=== PATIENT | female | born 1950 | race Caucasian/White ===

== ENCOUNTER → 2017-05-10 | Outpatient (CLI) | payer OTHER, BC ==
[~2017-05-10] VITALS: Ht 160 cm; Wt 75.3 kg
[~2017-05-10] MED LIST: AMITRIPTYLINE H10 M3 PO; DYMISTA NASAL S23 GM NS; NEURONTIN 300300 M1 PO; PROTONIX40 M1 PO; XYZAL5 MG PO
--- NOTE | ~2017-05-10 | HPC ---
[facility] [place] [address] PAIN MANAGEMENT CONSULTATION Name: JOHN PALM Room #: REG MIKAELA PerezKrystinaAmalia#: [id number] Admission: 05/10/17 Attend Phys: Tre Toure DO Discharge: Date of : 54 Report #: [id number] THIS REPORT FOR: //name// CC: Ephraim Toure HISTORY OF PRESENT ILLNESS: The patient is a very pleasant 67-year-old female seen in consultation at the request of Dr. Saab for assistance with right mid thoracic acute herpetic zoster. The patient notes late March, she developed some pain in the middle of the right back, very quickly radiating around to mid axillary line and inframammary area. Initially thought she had a "heat reaction", but quickly developed classic shingles. She followed up with Dr. Saab, who gave her an appropriate course of acyclovir and started her on gabapentin up to 300 mg t.i.d. She is having nominal efficacy with this. Notes she has significant burning, stabbing, sharp pain in the right T6 distribution. She reports that the lesions have cleared nicely. She does some light touch allodynia and hyperpathia. REVIEW OF SYSTEMS: Complete review of systems is attached to the chart and gone over with the patient. She is , seen in the company of her who is supportive. She not smoke or drink alcohol to excess. Has enjoyed remarkably good health. She is a retired teacher. She really takes no prescription medications, other than a little pantoprazole for gastroesophageal reflux and some seasonal rhinitis and allergy agents ( azelastine) Dymista nasal spray and Xyzal oral, along with the aforementioned gabapentin 300 mg t.i.d. She was prescribed tramadol to help with pain, but this caused some nausea. Pain impact score is quite high, scoring 60/70 points. PHYSICAL EXAMINATION: GENERAL: Reveals a 5-feet-3, 164-pound female. BMI is 29.4 kilograms per meter squared. VITAL SIGNS: Blood pressure is 128/67, pulse 69 and respirations 16. NEUROLOGIC: Cranial nerves 2-12 are grossly intact. Pupils equal and reactive to light and accommodation. Extraocular muscles are intact. NECK: Cervical range of motion is full. Thyroid is modestly enlarged. HEART: Regular and rhythmical, with a grade 2/6 systolic ejection murmur. LUNGS: Clear to auscultation. EXTREMITIES: Upper extremity strength is preserved. With the nurse in the room, chest exam was performed she does have a fairly classic T6 erythematous rash, appears to be healing lesions. Unfortunately, I see no signs of secondary infection. Gait is tandem. Lower extremity strength is preserved. ABDOMEN: Unremarkable. ASSESSMENT: Symptomatic and acute herpes zoster, [place] [address] PAIN MANAGEMENT CONSULTATION Name: JOHN PALM Room #: REG MIKAELA Nguyen#: [id number] Admission: 05/10/17 Attend Phys: Tre Toure DO Discharge: Date of : 54 Report #: [id number] RECOMMENDATIONS: 1. Agree with gabapentin. 2. We will start the patient on amitriptyline 10 mg 1-2 at bedtime. I have taken the liberty of writing for 60 tablets with 2 refills. Studies do show that use of tricyclic antidepressants for a period of time following initial outbreaks can place the patients at a lower risk group for developing postherpetic neuralgia. Likewise, we will proceed with a thoracic epidural injection today. Hopefully, this will help with acute pain as well as place the patient in a lower risk category for postherpetic neuralgia. We would like to see the patient back in 1 week for likely repeat thoracic epidural injection. PROCEDURE NOTE: Thoracic epidural injection under fluoroscopy. PROCEDURE NOTE: After written and informed consent was obtained including risk of dural puncture, spinal cord trauma, paralysis and increased pain, the patient was taken to the fluoroscopy suite and placed in the prone position, with appropriate abdominal bolstering, neck was flexed, palms under the thighs. Skin was prepped with ChloraPrep. Sterile draping was applied. Skin wheal with 1% Xylocaine was raised. A 22-gauge 3-1/2 inch epidural Tuohy needle was placed via a midline approach at the level to T6-T7 interspace, advanced under biplanar fluoroscopy using continuous loss of resistance. With appropriate loss of resistance at the expected depth on lateral view, the glass loss of resistance syringe was disconnected. A low volume extension tubing was connected to the needle and a 5 mL syringe. Negative aspiration for cerebrospinal fluid or blood was noted. A 1 mL of Omnipaque was injected which showed spread within the epidural space on biplanar fluoroscopy. This was followed with 80 mg of triamcinolone plus 1 mL of 1.5% preservative Xylocaine. Needle was withdrawn to the interspinous ligament, 0.5 mL of Xylocaine was used to flush the needle. The needle was then completely withdrawn. The area was cleansed. Band-Aid was applied. The patient was allowed to move off the procedure table and ambulated to the recovery room, monitored for an appropriate period of time, discharged in good and stable condition. Thanks for allowing me to participate in the patient's care. I will keep you abreast of her progress. By: 1220 [id number] Tre Toure DO /nt
[2017-05-10 10:11] VITALS: BP 128/67
== END | disposition home or self-care (01) ==
LOC: PAIN 09:38
DX: M54.14 Radiculopathy, thoracic region (principal); B02.8 Zoster with other complications; K21.9 Gastro-esophageal reflux disease without esophagitis

== ENCOUNTER → 2017-05-17 | Outpatient (CLI) | payer OTHER, BC ==
[~2017-05-17] VITALS: Ht 160 cm; Wt 75.5 kg
[~2017-05-17] MED LIST changes: +TIZANIDINE HCL 22 M1 PO
[2017-05-17 09:50] VITALS: BP 125/77
== END ==
LOC: PAIN 06:49
DX: B02.29 Other postherpetic nervous system involvement (principal); M54.6 Pain in thoracic spine; Z79.899 Other long term (current) drug therapy

== ENCOUNTER → 2017-06-06 | Outpatient (CLI) | payer OTHER, BC ==
[~2017-06-06] VITALS: Ht 160 cm; Wt 78.3 kg
[~2017-06-06] MED LIST changes: +LIDODERM 5%1 PATC1 TRANSDERM
[2017-06-06 10:21] VITALS: BP 113/57
== END | disposition home or self-care (01) ==
LOC: PAIN 07:29
DX: B02.29 Other postherpetic nervous system involvement (principal); F11.20 Opioid dependence, uncomplicated; Z88.0 Allergy status to penicillin; Z88.8 Allergy status to other drugs, medicaments and biological substances; Z98.890 Other specified postprocedural states

== ENCOUNTER → 2017-12-23 | Outpatient (CLI) | payer OTHER, BC ==
[~2017-12-23] VITALS: Ht 160 cm; Wt 79.0 kg
[~2017-12-23] MED LIST changes: +LYRICA 75 MG CA75 MG PO; +TRAMADOL 50 MG50 MG PO; +TRILEPTAL150 MG PO; +TYLENOL EXTRA500 MG PO; +TYLENOL PM EX-1 EACH PO
--- NOTE | ~2017-12-23 | HPC ---
[facility] Roxanne Sood [place] [address] PAIN MANAGEMENT CONSULTATION Name: JOHN PALM Room #: REG MIKAELA Nguyen#: [id number] Admission: 12/23/17 Attend Phys: Tre Toure DO Discharge: Date of : 54 Report #: [id number] THIS REPORT FOR: //name// CC: Ephraim Toure DATE OF SERVICE: 12/23/2017 The patient is a 67-year-old female, prior seen in pain clinic about half a year ago, 05/2017. Diagnosed with acute herpetic neuralgia, right T7 distribution. Started the patient on gabapentin 300 mg titrated t.i.d., Elavil at bedtime. We did 2 thoracic epidural injections. Returns to pain clinic today for prolonged visit. The patient was seen from 09:19-09:45, greater than 50% of this 25+ minute visit was spent counseling the patient. She was titrating her gabapentin dose up to 600 mg t.i.d., amitriptyline 20 mg at bedtime with ongoing neuropathic pain, she rates it 3-4 on VAS, still right T7 distribution under the right breast. She notes pain got worse again about 4 weeks ago. She is using an [id number] 4% lidocaine patch (Salonpas 4% lidocaine). This affords transient efficacy. The prescription Lidoderm patches were simply too costly for her. She notes pain is sharp and shooting, rates around that right side under the breast. There are no skin changes. Upper extremity strength is preserved. Vital signs are stable. BMI is 30.9 kilograms per meter squared. She has not fallen in the last 3 months. Medication list was reconciled. She does not use tobacco products. Skin integument again looks good. She has some allodynic pain, but no hyperpathia. Light touch sensation is slightly diminished in the T7 distribution on the right side. Heart is regular and rhythmical without murmur. Lungs are clear. She has good breath sounds in all 4 quadrants. ASSESSMENT: Neuropathic pain, postherpetic neuralgia, right T7 distribution in a patient who has been treated with appropriate antivirals, tricyclic antidepressant at bedtime, had 2 thoracic epidural injections at the time of acute presentation. Continue with gabapentin 600 mg t.i.d. with dwindling efficacy. Long discussion with the patient today about therapeutic options. Ultimately, we elected to simply rotate to Lyrica, another calcium channel membrane stabilizing agent. Simply discontinue gabapentin tonight and start Lyrica 75 mg b.i.d., roughly equally analgesic dose. We will try this for 1 week. If she notes some efficacy, we will continue this, samples and prescription given. If [address] [address] PAIN MANAGEMENT CONSULTATION Name: JOHN PALM Room #: REG CLSlim Nguyen#: [id number] Admission: 12/23/17 Attend Phys: Tre Toure DO Discharge: Date of : 54 Report #: [id number] that 1 week, she still has ongoing pain, I have taken the liberty of adding a sodium channel membrane stabilizing agent (Trileptal) starting 150 mg at bedtime and titrating to 1 in the morning, 2 at night. Follow up in 3 weeks to reevaluate. Long discussion with the patient about further therapeutic options. We may consider capsaicin as a topical agent, though this is often poorly tolerated. There is some reference in the literature to efficacy with spinal cord stimulators; however, as it is an off label use, getting it approved would be difficult (typically approved only for failed back syndrome or RSD type pain). We may look at low dose, partial opiate agonist (topical Butrans?). Thanks for allowing me to participate in the patient's care. Aforementioned medication changes were made. We will follow up in 4 weeks to reevaluate. I will keep you abreast of her progress. <ELECTRONICALLY SIGNED> By: Tre Toure DO 12/25/17 1417 [id number] Tre Toure DO /nt
[2017-12-23 09:07] VITALS: BP 147/73
== END ==
LOC: PAIN 06:51
DX: G58.8 Other specified mononeuropathies (principal)

== ENCOUNTER → 2018-01-20 | Outpatient (CLI) | payer OTHER, BC ==
[~2018-01-20] VITALS: Ht 160 cm; Wt 80.0 kg
--- NOTE | ~2018-01-20 | HPC ---
[facility] [place] [address] PAIN MANAGEMENT CONSULTATION Name: JOHN PALM Room #: REG MIKAELA Wendy#: [id number] Admission: 01/20/18 Attend Phys: Tre Toure DO Discharge: Date of : 54 Report #: [id number] THIS REPORT FOR: //name// CC: Ephraim Toure The patient is a 68-year-old female being treated for neuropathic pain, postherpetic neuralgia in right T7 distribution. Last seen in the pain clinic on 12/23/2017. The patient was rotated from gabapentin to Lyrica and we started Trileptal. She returns to the pain clinic today with her who is supportive. She notes neither medication have afforded any relief. She notes the Lyrica is quite costly. 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 She has also started some acupuncture and is using essential oils. The patient notes her pain is a 3 on a VAS. Medications are not helpful. PHYSICAL EXAMINATION: Unchanged. A pleasant 68-year-old female, BMI is 31.6 kilograms per meter squared. Vital signs are stable. She is alert and oriented to person, place and time, judged to be a reasonable historian and has not fallen. Medications were reconciled. Chest wall exam was deferred, but she still has hyperpathia, allodynia and neuropathic pain in her right T7 distribution. RECOMMENDATION: I had long discussion with the patient today about therapeutic options. We talked about weaning her agents 1 pill every 5 days. We will drop down to 75 mg Lyrica 1 a day for 5 days and then discontinue 5 days hence. We will start weaning Trileptal dropping from 1 in the morning, 2 at night to simply 2 tablets at night for 5 days, 1 tablet at night for 5 days and then off. If at some point, she notes symptoms recur I will be happy to renew that prescription. Otherwise, we will have the patient continue with homeopathic and reflexology therapeutics as well as essential oils. I will be happy to see the patient on an as needed basis. Thank you for allowing me to participate in the patient's care. <ELECTRONICALLY SIGNED> By: Tre Toure DO 01/22/18 0820 [id number] Tre Toure DO /nt
[2018-01-20 09:46] VITALS: BP 90/60
== END ==
LOC: PAIN 07:19
DX: M79.2 Neuralgia and neuritis, unspecified (principal); B02.29 Other postherpetic nervous system involvement